=== PATIENT | female | born 1990 | race Caucasian/White ===

== ENCOUNTER → 2018-12-17 15:32 | Outpatient (CLI) | payer OTHER, MEDICAID, SELFPAY ==
--- NOTE | 2018-12-17 | DI.US.S_ITS ---
PROCEDURE: US OB >= 14 WEEKS FETUS INDICATIONS: ANATOMY SCAN OUTSIDE/PRIOR DATING DATA: Last menstrual period (LMP): Unknown. LMP-based estimated date of delivery (JUSTICE): None. First dating scan (date and location): Unknown. Estimated date of delivery (JUSTICE) from first dating scan: 05/05/19. TECHNIQUE: Real-time scanning was performed of the fetus, with image documentation and biometric measurements. Endovaginal scanning: Not performed COMPARISON: None. FINDINGS: General: A single living intrauterine gestation is present. Presentation: Breech Placenta: Placental position is fundal, without previa. Amniotic fluid index: 12.8 cm, normal range is 5-24 cm. heart rate: 150 beats per minute. Maternal cervical canal: 3.2 cm long. Normal lower limit is 2.5 cm biometrics: Biparietal diameter: 4.7 cm, 20 weeks 2 days Head circumference: 18.1 cm, 20 weeks 4 days Abdominal circumference: 16.2 cm, 21 weeks 2 days Femur length: 3.3 cm, 20 weeks 2 days Estimated gestational age from initial scan: 20 week one day. Composite gestational age from present scan: 20 weeks 4 days Estimated weight and percentile: 377 g, 80% Measurement variability for biometric dating: +/- 7 days from 14 weeks to 15 weeks 6 days gestation, +/- 10 days from 16 weeks to 21 weeks 6 days gestation, +/- 2 weeks from 22 weeks to 27 weeks 6 days gestation, +/- 3 weeks for 28 weeks gestation or later. weight reference: 4500 g or EFW >90/95% is considered macrosomia or large for gestational age. EFW <10% is small for gestational age. EFW 5% or less is considered intra-uterine growth restriction. Anatomic survey: Neuro: Ventricles are non-dilated at less than 10 mm. Cisterna magna is normal at 3-11 mm. Cerebellum is normal in size and morphology. Nuchal skin fold: Normal at less than 6 mm between 14-21 weeks gestational age. Face: Nose and lips, facial profile are normal. Spine: No evidence for spina bifida. Heart: 4-chambered heart is present, with normal ventricular outflow tracts. Diaphragm: Diaphragm is intact. Stomach: Left-sided stomach is present. Kidneys: No hydronephrosis. Normal is less than 5 mm in 2nd trimester, less than 7 mm in 3rd trimester. Cord: 3-vessel cord has orthotopic insertion. Bladder: Normal in size. Extremities: All 4 extremities identified. Prominent vessels are noted in bilateral adnexa which may represent varices measures up to 1.9 cm in diameter in right adnexa a 1.3 cm in diameter in left adnexa. 1.6 cm right ovarian cyst is seen. IMPRESSION: 1. Single lead into with fetus in breech presentation. rate is 150 beats per minute. Estimated gestational age is 20 weeks 4 days. Normal growth. 2. Normal anatomic survey. 3. Prominent bilateral adnexal vessels, which may represent varices. Possible corpus luteal cyst in right ovary. Dictated by: Abram Lira M.D. on 12/17/2018 at 17:35 Approved by: Abram Lira M.D. on 12/17/2018 at 17:38
== END ==
PROVIDERS: Visit Provider Midwife
DX: Z36.89 Encounter for other specified antenatal screening (principal); Z3A.20 20 weeks gestation of pregnancy
CPT/HCPCS: 76811